=== PATIENT | female | born 1955 | race Caucasian/White ===

== ENCOUNTER 2021-03-12 09:31 | Day surgery (SDC) | payer MEDICARE, OTHER ==
[~2021-03-12] VITALS: Ht 170.2 cm; Wt 78.5 kg
[2021-03-12 10:09] VITALS: BP 119/62; PULSE 78; TEMP 97.9
[2021-03-12 11:50] VITALS: BP 131/82; PULSE 71; TEMP 96.8
[2021-03-12 12:00] VITALS: BP 121/76; PULSE 71
[2021-03-12 12:15] VITALS: BP 135/78; PULSE 59
[2021-03-12 12:30] VITALS: BP 135/80; PULSE 54
--- NOTE | 2021-03-12 14:00 | NUR ---
PT RETURNED FORM ENDO PROCEDURE ROOM INTO BAY #4 PER CART. PT ALERT AND ORIENTATED, SLEEPY. ABLE TO FOLLOW DIRECTIONS AND ANSWER QUESTIONS APPROPRIATELY. PT DENIES NAUSEA OR PAIN AT THIS TIME AND REQUESTS BEEF BROTH. LUNGS CLEAR WITH DIMINISHED BASES, HRR, BOWEL SOUNDS PRESENT. IVF RUNNING PATENT INTO LEFT HAND. PT PROVIDED WARM BLANKETS FOR COMFORT, CALL LIGHT IN REACH.
--- NOTE | 2021-03-12 14:04 | NUR ---
PT TOLERATING BEEF BROTH, HAS ALSO BROUGHT WARM WATER IN A CUP FROM HOME SHE PREFERS IT. PT DENIES NAUSEA, VOMITING OR PAIN. WILL MONITOR PROGRESS.
--- NOTE | 2021-03-12 14:06 | NUR ---
PT CONTINUES TO TOLERATE PO'S WELL. IV DC'D TO LEFT HAND, PT TOLERATED WELL. DISMISSAL INSTRUCTIONS GIVEN TO PATIENT. PT VOICES UNDERSTANDING AND DENIES QUESIONS. PT SIGNED DISMISSAL INSTRUCTIONS. PT UP TO VOID WITHOUT DIFFICUTLY. PT WAS DISCHARGED PER WC TO THE PT ENTRANCE INTO FAMILY CAR, ROSS HER WAS DRIVING.
== END 2021-03-12 12:40 | disposition home or self-care (01) ==
LOC: SDCO 09:31
DX: Z12.11 Encounter for screening for malignant neoplasm of colon (principal); D12.4 Benign neoplasm of descending colon; K57.30 Diverticulosis of large intestine without perforation or abscess without bleeding; M19.90 Unspecified osteoarthritis, unspecified site; Z87.891 Personal history of nicotine dependence; Z20.822 Contact with and (suspected) exposure to COVID-19
CPT/HCPCS: J2704; J7120

== ENCOUNTER 2021-06-11 08:24 | Day surgery (SDC) | payer MEDICARE, OTHER ==
[~2021-06-11] VITALS: Ht 170.2 cm; Wt 79.7 kg
[2021-06-11 08:56] VITALS: BP 133/76; PULSE 64; TEMP 98
[2021-06-11] MEDS ORDERED: ASPIRIN 81M81 MG/TA2 PO (09:19)
[2021-06-11 10:45] VITALS: BP 118/78; PULSE 62; TEMP 97.6
[2021-06-11 11:00] VITALS: BP 121/55; PULSE 69
[2021-06-11 11:15] VITALS: BP 124/65; PULSE 64
[2021-06-11 11:30] VITALS: BP 107/52; PULSE 63
== END 2021-06-11 11:40 | disposition home or self-care (01) ==
LOC: SDCO 08:24
DX: D12.5 Benign neoplasm of sigmoid colon (principal); A69.20 Lyme disease, unspecified; M54.9 Dorsalgia, unspecified; R13.10 Dysphagia, unspecified; M19.90 Unspecified osteoarthritis, unspecified site; Z20.822 Contact with and (suspected) exposure to COVID-19; Z79.82 Long term (current) use of aspirin; Z79.899 Other long term (current) drug therapy; Z87.891 Personal history of nicotine dependence; Z83.3 Family history of diabetes mellitus; Z82.49 Family history of ischemic heart disease and other diseases of the circulatory system
CPT/HCPCS: J2704; J7120

== ENCOUNTER 2021-07-13 09:19 | Outpatient (RCR) | payer MEDICARE, OTHER ==
[~2021-07-13 09:19] MED LIST: ASPIRIN 81M81 MG/TA2 PO
== END 2021-10-11 | disposition home or self-care (01) ==
LOC: WSST
DX: R13.10 Dysphagia, unspecified (principal)

== ENCOUNTER → 2021-07-20 | Outpatient (CLI) | payer MEDICARE, OTHER | LOC: COL.RAD 15:00 | DX: R13.10 Dysphagia, unspecified (principal) ==